=== PATIENT | female | born 1975 | race African-American/Black ===

== ENCOUNTER 2018-01-18 17:54 | Emergency (ER) | payer OTHER ==
[~2018-01-18] VITALS: Wt 79.4 kg
[~2018-01-18 17:54] MED LIST: 'PARAFON FORTE500 M1 PO; AMOXIL500 MG PO; AUGMENTIN 500 M1 TAB PO; DAYPRO600 M1 PO; FLEXERIL10 MG PO; HYDROCODONE BIT1 T11 PO; MEDROL DOSEPAK4 MG PO; MIRALAX POWDER17 G1 PO; NAPROSYN500 MG PO; PREDNICOT20 MG PO; ROBAXIN750 MG PO; ROBITUSSIN AC 110 ML PO; TORADOL10 MG PO; ULTRAM50 MG PO; VICODIN 500 MG-1 TAB PO
[2018-01-18] MEDS ORDERED: CHLORZOXAZONE500 M2 PO (18:09)
[2018-01-18] MEDS ORDERED: NAPROSYN500 MG PO (18:09)
== END 2018-01-18 20:19 | disposition home or self-care (01) ==
LOC: ED 17:54
DX: M54.2 Cervicalgia (principal); M25.512 Pain in left shoulder; M54.5 Low back pain; Z79.899 Other long term (current) drug therapy; V49.88XA Car occupant (driver) (passenger) injured in other specified transport accidents, initial encounter; Y93.89 Activity, other specified; Y92.413 State road as the place of occurrence of the external cause; Y99.9 Unspecified external cause status

== ENCOUNTER 2019-12-30 14:18 | Observation (INO) | payer OTHER ==
[~2019-12-30] VITALS: Ht 165.1 cm; Wt 78.6 kg
[~2019-12-30 14:18] MED LIST changes: +CHLORZOXAZONE500 M2 PO
[2019-12-30 14:39] VITALS: BP 114/53
[2019-12-30 14:48] LABS: BASO # 0.1 10*3/uL (0.0-0.1); BASO % 1.3 % (0.0-1.0); EOS # 0.3 10*3/uL (0.0-0.4); EOS % 6.9 % (1.0-4.0); LYMPH # 1.7 10*3/uL (1.3-4.4); LYMPH % 35.6 % (27.0-41.0); MEAN CORPUSCULAR HGB 29.3 pg (27.0-31.0); MEAN CORPUSCULAR HGB CONC 33.3 g/dl (33.0-37.0); MONO # 0.5 10*3/uL (0.1-1.0); MONO % 9.6 % (3.0-9.0); NEUT # 2.2 10*3/uL (2.3-7.9); NEUT % 46.4 % (47.0-73.0); PLATELET COUNT AUTOMATED 286 10*3/uL (130-400); RED BLOOD COUNT 4.09 10*6/uL (4.10-5.10); RED CELL DISTRI WIDTH 13.2 % (0-14.5); WHITE BLOOD COUNT 4.8 10*3/uL (4.8-10.8)
[2019-12-30 14:58] LABS: ACT PARTIAL THROMBO TIME 28.6 SECONDS (20.0-32.1)
[2019-12-30 15:21] LABS: BILIRUBIN NEGATIVE (NEGATIVE); BLOOD NEGATIVE (NEGATIVE); CLARITY CLEAR (CLEAR); COLOR STRAW (YELLOW); GLUCOSE NEGATIVE (NEGATIVE); KETONE NEGATIVE (NEGATIVE); LEUKO ESTERASE TRACE (NEGATIVE); NITRITE NEGATIVE (NEGATIVE); PH 7.5 (5.0-9.0); SPECIFIC GRAVITY 1.005 (1.005-1.030); UROBILINOGEN 0.2 E.U./dl (0.2-1.0)
[2019-12-30 15:27] LABS: ALBUMIN 3.9 gm/dl (3.1-4.5); ALKALINE PHOSPHATASE 49 U/L (45-117); BUN 8 mg/dl (7-24); CHLORIDE 104 mmol/L (98-107); CREATININE 0.92 mg/dL (0.55-1.02); POTASSIUM 3.8 mmol/L (3.5-5.1); SGOT/AST 15 IU/L (3-35); SGPT/ALT 22 U/L (12-78); SODIUM 135 mmol/L (136-145); TOTAL PROTEIN 7.8 gm/dL (6.4-8.2)
[2019-12-30 15:29] LABS: TROPONIN I < 0.015 ng/ml (<0.045)
[2019-12-30 15:44] LABS: BACTERIA TRACE; RBC 0-2 rbc/hpf (0-2)
--- NOTE | 2019-12-30 15:44 | NUR ---
PT RESTING. GOT HER A GLASS OF WATER. FAMILY AT BEDSIDE.
[2019-12-30 16:00] VITALS: BP 116/72
--- NOTE | 2019-12-30 16:20 | NUR ---
FIRST CALL MADE TO UTILITY SERVICE WORKER. NO ANSWER.
--- NOTE | 2019-12-30 16:28 | NUR ---
ATTEMPT 2 MADE TO TELE. NO ANSWER.
--- NOTE | 2019-12-30 16:35 | NUR ---
CONTACTED NURSES STATION ON . THEY WILL HAVE THE NURSE CALL ME BACK.
[2019-12-30 17:00] VITALS: BP 116/72
--- NOTE | 2019-12-30 17:00 | NUR ---
A 44, admitted to 4E, under the services of KATELYNN Swain DO with a diagnosis of CHEST HEAVINESS ,HYPONATREMIA. Chief complaint is RIGHT SIDED SHOULDER PAIN. Patient arrived via wheel chair from ER. Monitor applied. Initial assessment completed. Vital signs taken and recorded. KATELYNN SWAIN DO notified of OBSERVATION admission to the unit. Orders received. See assessment for past medical history, medications and allergies. Patient and/or family oriented to unit. [facility] visitation policy reviewed. Clothing/patient valuable form completed. MENDEZ VALE
--- NOTE | 2019-12-30 18:11 | NUR ---
PT STATES THAT SHE "TAKES NO HOME MEDS".
--- NOTE | 2019-12-30 19:00 | NUR ---
REPORT RECEIVED FROM MICHAEL TORO. PT LYING IN BED AT THIS TIME. VOICES NO COMPLAINTS AT THIS TIME. CALL LIGHT IN REACH
--- NOTE | 2019-12-30 19:34 | NUR ---
24 HR chart check completed.
[2019-12-30 20:00] VITALS: BP 92/50; BP 98/68
--- NOTE | 2019-12-30 21:30 | NUR ---
DR. CLARKE NOTIFIED OF PT BLOOD PRESSURE OF 98/68. NO ORDERS AT THIS TIME. WILL MONITOR BP
[2019-12-31] VITALS: BP 102/62
[2019-12-31 06:38] LABS: BASO # 0.1 10*3/uL (0.0-0.1); BASO % 1.3 % (0.0-1.0); EOS # 0.4 10*3/uL (0.0-0.4); EOS % 7.8 % (1.0-4.0); HEMATOCRIT 34.1 % (37.0-47.0); LYMPH # 1.9 10*3/uL (1.3-4.4); LYMPH % 40.5 % (27.0-41.0); MEAN CELL VOLUME 87.9 fl (81.0-99.0); MEAN CORPUSCULAR HGB 28.4 pg (27.0-31.0); MEAN CORPUSCULAR HGB CONC 32.3 g/dl (33.0-37.0); MEAN PLATELET VOLUME 8.9 fl (9.6-12.3); MONO # 0.5 10*3/uL (0.1-1.0); MONO % 10.4 % (3.0-9.0); NEUT # 1.9 10*3/uL (2.3-7.9); PLATELET COUNT AUTOMATED 252 10*3/uL (130-400); RED BLOOD COUNT 3.88 10*6/uL (4.10-5.10); RED CELL DISTRI WIDTH 13.2 % (0-14.5); WHITE BLOOD COUNT 4.6 10*3/uL (4.8-10.8)
[2019-12-31 06:55] LABS: ALBUMIN 3.1 gm/dl (3.1-4.5); ALKALINE PHOSPHATASE 43 U/L (45-117); BUN 7 mg/dl (7-24); CHLORIDE 110 mmol/L (98-107); CHOLESTEROL 168 mg/dL (<200); CREATININE 0.85 mg/dL (0.55-1.02); HDL CHOLESTEROL 60 mg/dl (40-60); LDL CHOLESTEROL 96 mg/dL (9-159); PHOSPHOROUS 3.2 mg/dL (2.5-4.9); POTASSIUM 4.1 mmol/L (3.5-5.1); SGOT/AST 11 IU/L (3-35); SGPT/ALT 18 U/L (12-78); SODIUM 141 mmol/L (136-145); TOTAL PROTEIN 6.4 gm/dL (6.4-8.2); TRIGLYCERIDES 58 mg/dl (<150); VLDL CHOLESTEROL 12 mg/dL (6-40)
[2019-12-31 08:00] VITALS: BP 92/49
--- NOTE | 2019-12-31 08:37 | NUR ---
PT RESTING IN BED. NO DISTRESS NOTED. WILL MONITOR
--- NOTE | 2019-12-31 11:00 | NUR ---
Discharge instructions reviewed with patient/family. Patient receptive and verbalizes understanding. Follow-up care arranged. Written instructions given to patient/family. NICHELLE GUZMAN
== END 2019-12-31 11:00 | disposition home or self-care (01) ==
LOC: ED 14:18 → EDHOLD 16:04 → 4E 16:04
PROVIDERS: Nurse Practitioner; Student in an Organized Health Care Education/Training Program; ADMIT Emergency Medicine
DX: R07.89 Other chest pain (principal); E87.1 Hypo-osmolality and hyponatremia; D64.9 Anemia, unspecified; D70.9 Neutropenia, unspecified; E66.3 Overweight; R03.0 Elevated blood-pressure reading, without diagnosis of hypertension